=== PATIENT | female | born 1990 | race Caucasian/White ===

== ENCOUNTER 2016-11-12 04:18 | Emergency (ER) | payer SELFPAY ==
[~2016-11-12] VITALS: Ht 165.1 cm; Wt 65.8 kg
--- NOTE | 2016-11-12 04:18 | NUR ---
PT BIB [facility], PREBOOK. TAKEN TO [facility]
[2016-11-12 04:29] VITALS: BP 120/86
--- NOTE | 2016-11-12 04:33 | NUR ---
Dr. Boudreaux evaluating patient at bedside.
[2016-11-12 04:48] VITALS: BP 114/67
--- NOTE | 2016-11-12 04:48 | NUR ---
Patient discharged with v/s stable. Written and verbal after care instructions given and explained. Patient verbalized understanding. Police with in custody. All questions addressed prior to discharge. Advised to follow up with [facility]D.
== END 2016-11-12 04:48 ==
LOC: MED 04:18
DX: Z02.89 Encounter for other administrative examinations (principal); S40.212A Abrasion of left shoulder, initial encounter; R03.0 Elevated blood-pressure reading, without diagnosis of hypertension; V89.2XXA Person injured in unspecified motor-vehicle accident, traffic, initial encounter; Y93.89 Activity, other specified; Y92.89 Other specified places as the place of occurrence of the external cause; Y99.8 Other external cause status
CPT/HCPCS: 99283